=== PATIENT | female | born 1970 | race African-American/Black ===

== ENCOUNTER 2018-05-17 10:24 | Emergency (ER) | payer MEDICARE, OTHER ==
[~2018-05-17] VITALS: Ht 175.3 cm; Wt 66.7 kg
--- NOTE | 2018-05-17 10:47 | PHYS DOC ---
Past History Past Medical History: Renal Failure Smoking: Non-smoker Adult General Chief Complaint Chief Complaint: KNEE INJURY HPI HPI Patient is a 48 year old female who presents with complaining of right knee injury and pain. Patient states she slipped on ice while going down of stairs and had a fall from 2 steps and injured her right knee without head and other injuries and loss of consciousness. Patient rated her pain 10 over 10 and denies focal neuro deficit. Patient states she was able to walk without bearing weight. Review of Systems Review of Systems Constitutional: Denies fever or chills [] Eyes: Denies change in visual acuity, redness, or eye pain [] HENT: Denies nasal congestion or sore throat [] Respiratory: Denies cough or shortness of breath [] Cardiovascular: No additional information not addressed in HPI [] GI: Denies abdominal pain, nausea, vomiting, bloody stools or diarrhea [] : Denies dysuria or hematuria [] Musculoskeletal: Denies back pain, reports joint pain [] Integument: Denies rash or skin lesions [] Neurologic: Denies headache, focal weakness or sensory changes [] Endocrine: Denies polyuria or polydipsia [] All other systems were reviewed and found to be within normal limits, except as documented in this note. Physical Exam Physical Exam Constitutional: Well developed, well nourished, moderate acute distress, non- toxic appearance. [] HENT: Normocephalic, atraumatic. Eyes: PERRLA, EOMI, conjunctiva normal, no discharge. [] Neck: Normal range of motion, no tenderness, supple, no stridor. [] Cardiovascular:Heart rate regular rhythm, no murmur [] Lungs & Thorax: Bilateral breath sounds clear to auscultation [] Skin: Warm, dry, no erythema, no rash. [] Back: No tenderness, no CVA tenderness. [] Extremities: Right knee with edema and tenderness in patella area with painful range of motion No tenderness, holding right knee into the decreased flexion , no cyanosis, no clubbing. Neurologic: Alert and oriented X 3, normal motor function, normal sensory function, no focal deficits noted. [] Psychologic: Affect normal, judgement normal, mood normal. [] EKG EKG [] Radiology/Procedures Radiology/Procedures [address] [id number] IMAGING REPORT Signed PATIENT: MURALI BEVERLY ACCOUNT: [id number] : 1970 LOCATION: ER AGE: 48 SEX: F EXAM STATUS: PRE ER ORD. PHYSICIAN: WILL LOPEZ MD REASON: fall on ice PROCEDURE: KNEE RIGHT 4V Right knee, 3 views, 05/17/2018: HISTORY: Fall, knee pain There are faint ill-defined opacities along the upper pole of the patella raising the possibility of a avulsion fracture fragments. There is soft tissue swelling in this region. Mild cortical deformity along the lateral margin of the lateral femoral condyle is compatible with old trauma. No other acute fracture or dislocation is identified. Arterial calcifications are noted. IMPRESSION: Faint calcifications in the soft tissues along the upper pole of the patella raising the possibility of a patellar avulsion fracture versus tendinous calcification due to an old injury. Clinical correlation suggested. Electronically signed by: Gregorio Almanza MD (05/17/2018 11:09 AM) [facility] DICTATED AND SIGNED BY: GREGORIO ALMANZA MD DATE: 05/17/18 1104 CC: WILL LOPEZ MD ~ [address] [id number] IMAGING REPORT Signed PATIENT: MURALI BEVERLY ACCOUNT: [id number] : 1970 LOCATION: ER AGE: 48 SEX: F EXAM STATUS: REG ER ORD. PHYSICIAN: WILL LOPEZ MD REASON: fall, abnormal x-ray PROCEDURE: CT LOWER EXTREMITY WO RIGHT CT study of the right knee without contrast Clinical indications: Right knee pain status post fall this a.m. Abnormal x-ray. COMPARISON: Radiographic study performed today. TECHNIQUE: Noncontrast helical CT scanning of the right knee was performed. Multiplanar 2-D reconstructions were generated. PQRS compliance Statement One or more of the following individualized dose reduction techniques were utilized for this study: 1. Automated exposure control 2. Adjustment of the mA and/or kV according to patient size 3. Use of iterative reconstruction technique FINDINGS: There is soft tissue thickening around the distal quadriceps tendon at the attachment to the superior pole of the patella. Calcifications are seen here within the distal quadriceps tendon. This may represent chronic calcific tendinitis of the quadriceps tendon. No avulsion fracture or adjacent superior pole patellar defect is evident. The tendon appears discontinuous at the attachment to the superior pole of the patella with an approximate gap of 9 mm. Portion of the tendon appears partially retracted. This is consistent with a full-thickness tear of the quadriceps tendon to the superior pole of the patella. The patellar tendon appears intact. No acute fracture is evident otherwise. No lytic process is seen. There is a small knee joint effusion. No radiopaque loose body is evident. No distended Tracy's cyst is seen. IMPRESSION: No acute fracture. CT findings are highly suggestive of a full-thickness tear of the quadriceps tendon insertion to the superior pole of the patella with calcific quadriceps tendinitis. This may be confirmed with MRI imaging if clinically needed. Electronically signed by: Kobe Caceres MD (05/17/2018 12:28 PM) [id number] DICTATED AND SIGNED BY: KOBE CACERES MD DATE: 05/17/18 1213 CC: MARIO FERRARI MD; WILL LOEPZ MD ~ Course & Med Decision Making Course & Med Decision Making Pertinent Imaging studies reviewed. (See chart for details) Evaluation of patient in ER showed 48-year-old female patient with fall and injury to right knee. X-ray and CT of right lower extremity showed complete quadriceps tendon tear. We will immobilizer was applied. Patient did not want to have a shot of pain medication and treated with hydrocodone in ER. director call center sales orthopedic physician Dr Valdes was consulted at 1258 and he recommended patient following up with his office tomorrow for evaluation and possible surgery. Dragon Disclaimer Dragon Disclaimer This electronic medical record was generated, in whole or in part, using a voice recognition dictation system. Departure Departure: Impression: Primary Impression: Quadriceps tendon rupture Additional Impressions: Strain of right knee Fall from slipping on ice Chronic kidney disease with end stage renal failure on dialysis Disposition: HOME, SELF-CARE (at 1304) Condition: IMPROVED Referrals: GIA VALDES MD Patient Instructions: Quadriceps Tendon Tear, Disruption with [facility] Additional Instructions: Follow-up with on-call orthopedist physician Dr. Valdes office tomorrow, call to make an appointment Use crutches and knee immobilizer Return to ER if not getting better Scripts Hydrocodone Bit/Acetaminophen (NORCO 5-325 TABLET) 1 Each Tablet 1 TAB PO PRN Q6HRS PRN for PAIN, #14 TAB 0 Refills Prov: WILL LOPEZ MD 05/17/18 Problem Qualifiers WILL LOPEZ MD May 17, 2018 10:47
[2018-05-17] MEDS ORDERED: HYDROcodone/APAP 5/325MG 1 TAB TABLET PO ONE ×2 (11:00→13:15)
--- NOTE | 2018-05-17 11:12 | RAD ---
Right knee, 3 views, 05/17/2018: HISTORY: Fall, knee pain There are faint ill-defined opacities along the upper pole of the patella raising the possibility of a avulsion fracture fragments. There is soft tissue swelling in this region. Mild cortical deformity along the lateral margin of the lateral femoral condyle is compatible with old trauma. No other acute fracture or dislocation is identified. Arterial calcifications are noted. IMPRESSION: Faint calcifications in the soft tissues along the upper pole of the patella raising the possibility of a patellar avulsion fracture versus tendinous calcification due to an old injury. Clinical correlation suggested. Electronically signed by: Gregorio Cannon MD (05/17/2018 11:09 AM) [facility]
[2018-05-17 12:06] VITALS: BP 100/71
--- NOTE | 2018-05-17 12:31 | RAD ---
CT study of the right knee without contrast Clinical indications: Right knee pain status post fall this a.m. Abnormal x-ray. COMPARISON: Radiographic study performed today. TECHNIQUE: Noncontrast helical CT scanning of the right knee was performed. Multiplanar 2-D reconstructions were generated. PQRS compliance Statement One or more of the following individualized dose reduction techniques were utilized for this study: 1. Automated exposure control 2. Adjustment of the mA and/or kV according to patient size 3. Use of iterative reconstruction technique FINDINGS: There is soft tissue thickening around the distal quadriceps tendon at the attachment to the superior pole of the patella. Calcifications are seen here within the distal quadriceps tendon. This may represent chronic calcific tendinitis of the quadriceps tendon. No avulsion fracture or adjacent superior pole patellar defect is evident. The tendon appears discontinuous at the attachment to the superior pole of the patella with an approximate gap of 9 mm. Portion of the tendon appears partially retracted. This is consistent with a full-thickness tear of the quadriceps tendon to the superior pole of the patella. The patellar tendon appears intact. No acute fracture is evident otherwise. No lytic process is seen. There is a small knee joint effusion. No radiopaque loose body is evident. No distended Tracy's cyst is seen. IMPRESSION: No acute fracture. CT findings are highly suggestive of a full-thickness tear of the quadriceps tendon insertion to the superior pole of the patella with calcific quadriceps tendinitis. This may be confirmed with MRI imaging if clinically needed. Electronically signed by: Kobe Caceres MD (05/17/2018 12:28 PM) [id number]
[2018-05-17] MEDS ORDERED: HYDR-3165 PO (13:06)
== END 2018-05-17 13:15 | disposition home or self-care (01) ==
LOC: ER 10:24
DX: S76.111A Strain of right quadriceps muscle, fascia and tendon, initial encounter (principal); S86.911A Strain of unspecified muscle(s) and tendon(s) at lower leg level, right leg, initial encounter; N18.6 End stage renal disease; Z99.2 Dependence on renal dialysis; W00.1XXA Fall from stairs and steps due to ice and snow, initial encounter; Y93.89 Activity, other specified; Y92.89 Other specified places as the place of occurrence of the external cause; Y99.8 Other external cause status
CPT/HCPCS: 29505; 73564; 73700; 99284-25